=== PATIENT | male | born 1950 | race African-American/Black ===

== ENCOUNTER 2019-08-18 09:12 | Observation (INO) | payer OTHER ==
[2019-08-18] VITALS (13 sets, daily range): BP systolic 135–154; BP diastolic 73–92
[~2019-08-18] VITALS: Ht 170.2 cm; Wt 92.2 kg
[2019-08-18 10:03] LABS: HEMATOCRIT 38.1 % (42.0-52.0); HEMOGLOBIN 13.2 gm/dL (14.0-18.0); MCHC 34.5 g/dL (28.0-37.0); MCV 95.6 fL (80.0-100.0); MPV 6.5 fl. (7.2-11.1); RBC 3.98 mil/uL (4.50-6.00); RDW-CV 13.1 % (10.5-14.5); WBC 3.9 thou/uL (4.0-11.0)
[2019-08-18 10:13] LABS: APTT 27.8 Seconds (25.0-31.3); INR 1.1; PROTIME 11.4 Seconds (9.20-11.50)
[2019-08-18 10:15] LABS: CHOLESTEROL 247 mg/dL (<200); HDL CHOLESTEROL 52 mg/dL (>40); LDL CHOLESTEROL 176 mg/dL (<100); TC:HDL 4.8 Ratio (Not establshd); TRIGLYCERIDE 98 mg/dL (<150); VLDL 20 mg/dL (<40)
[2019-08-18 10:16] LABS: SERUM ASSESSMENT Clear
[2019-08-18] MEDS ORDERED: VITAMINC500 PO (10:28)
[2019-08-18] MEDS ORDERED: FLAX OIL1000 MG PO (10:29)
[2019-08-18] MEDS ORDERED: PRINIVIL20 MG PO (10:30)
[2019-08-18] MEDS ORDERED: FISH OIL 1,001000 M3 PO (10:30)
[2019-08-18] MEDS ORDERED: THERA-M TABLET1 EACH PO (10:31)
[2019-08-18 10:50] LABS: CALCIUM 8.5 mg/dL (8.5-10.1); CREATININE 1.1 mg/dL (0.6-1.3); POTASSIUM 3.6 mmol/L (3.5-5.1)
[2019-08-18 10:55] LABS: ALBUMIN 3.5 g/dL (3.4-5.0); TOTAL BILIRUBIN 0.4 mg/dL (<0.1-1.0); TOTAL PROTEIN 7.7 g/dL (6.4-8.2)
--- NOTE | 2019-08-18 15:58 | CARD ---
[address] [address] CARDIAC CATH REPORT Name: SHERRI HOLLOWAY Room: [address] MTheodore#: [id number] Admission: 08/18/19 Attend Phys: Travis Darby MD, Discharge: Date of : 52 Report #: [id number] THIS REPORT FOR: //name// cc: Franco Hinson MD, Austin T. 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, Supa Spears, Sybil Parks RTR Monitor, Stefanie Sellers RN RN, Rupal Mayo RTR Monitor Procedures Performed Art Access - R femoral artery, Left Heart Cath w/or w/o Coronaries LHC, JAVED Place w/wo Plasty Single LAD , Hemostasis w/ Angioseal Indication Positive stress test Risk Factors Hypercholesterolemia, Hypertension Admission/Lab Medications/Medications given during procedure Nitroglycerin IC 350 mcg, Angiomax IV bolus 12 ml, Angiomax Drip IV 28.61 ml per hr, Angiomax IV bolus 3 ml, Effient PO 60 mg, Aspirin PO 324 mg Procedure Narrative The patient was brought electively to the Cardiac Catheterization Laboratory and was prepped and draped in a sterile manner. The right femoral was infiltrated with 2% Lidocaine subcutaneous anesthesia. A 6F Montgomery sheath was inserted into the right femoral artery. Coronary angiography was performed using coronary diagnostic catheters. The right coronary system was accessed and visualized with a 6F JR4 catheter. The left coronary system was accessed and visualized with a 6F JL4 catheter. The left ventricle was accessed and visualized with a 6F Pigtail catheter. Left ventricular/[place] [address] CARDIAC CATH REPORT Name: SHERRI HOLLOWAY Room: [address] M.R.#: [id number] Admission: 08/18/19 Attend Phys: Travis Darby MD, Discharge: Date of : 52 Report #: [id number] Valve gradient assessed via catheter pullback. Left ventriculogram was performed in HENDERSON projection. Pre-demployment femoral angiogram was performed . Closure device was deployed with a 6 Fr Angioseal STS. The patient tolerated the procedure well and there were no complications associated with the procedure. There was no hematoma. Intraoperative Conscious Sedation Sedation start time: 12:39 Case end Time: 13:34 Fentanyl 50 mcg Versed 4 mg Fluoro Time: 12.5 minutes Dose: DAP 245362 cGycm2 1902 mGy Contrast Type and Amount: Visipaque 230 ml Coronary Angiography The patient's coronary anatomy is right dominant. Diagnostic Cath Left Main 0% narrowing LAD 75% proximal LAD narrowing with 80% tubular calcified mid LAD stenosis Circumflex 40% proximal and 60% tubular mid vessel narrowing Right Coronary Dominant vessel with 40% proximal narrowing Left Ventriculography The left ventricle is normal in size with normal contractility. The left ventricular ejection fraction is estimated to be 60%. Left ventricular wall motion abnormalities are present. There is no mitral insufficiency. There is mild anteroapical hypokinesis noted Hemodynamics The aortic pressure is 130/63 mmHg with a mean of 97 mmHg. The left ventricular pressure is 131/-6 mmHg with a mean of mmHg. The left ventricular end diastolic pressure is 7 mmHg. There was no gradient across the aortic valve upon pullback. PCI Technique Lesion Anticoagulation was achieved with Angiomax. Patient was preloaded with Angiomax IV bolus 12 ml. Percutaneous coronary intervention was performed on the mid left anterior descending artery segment. The lesion stenosis prior to intervention was 80% with YANET 3 flow. A 6F XB LAD 3.5 Guide Catheter was used to engage the left main ostium. A BMW 190cm Interventional Guidewire [place] [address] CARDIAC CATH REPORT Name: SHERRI HOLLOWAY Room: [address] M.R.#: [id number] Admission: 08/18/19 Attend Phys: Travis Darby MD, Discharge: Date of : 52 Report #: [id number] lesion. BALLOON DILATION A Balloon catheter Trek RX 2.25 X 15 was inserted and inflated up to 12.00atm for 11seconds. Additional Inflation: 14.00atm for 10seconds. Additional Inflation: 14.00atm for 8seconds. STENT DEPLOYMENT A drug-eluting stent [place] RX Stent 2.71O13fx was inserted and inflated up to 14.00atm for 11seconds. Additional Inflation: 16.00atm for 12seconds. POST STENT DEPLOYMENT BALLOON DILATION A Balloon catheter [place] Euphora 2.5x12 was inserted and inflated up to 12.00atm for 8seconds. Additional Inflation: 14.00atm for 8seconds. Final angiography reveals 0 % stenosis with YANET 3 flow. PCI Technique Lesion 2 Percutaneous Coronary Intervention was performed on the proximal left anterior descending artery segment. Patient was preloaded with Angiomax IV bolus 12 ml. The lesion stenosis prior to intervention was 75% with YANET 3 flow. A 6F XB LAD 3.5 Guide Catheter was used to engage the left main ostium. A BMW 190cm Interventional Guidewire was used to cross the lesion. Stent Deployment A drug-eluting stent [place] RX Stent 2.5X12mm was inserted and inflated up to 12.00atm for 13seconds. Additional Inflation: 15.00atm for 8seconds. Post Stent Deployment Balloon Dilation A Balloon catheter NC Euphora 2.5x12 was inserted and inflated up to 14.00atm for 5seconds. Additional Inflation: 15.00atm for 7seconds. Additional Inflation: 18.00atm for 11seconds. Final angiography reveals 0 % stenosis with YANET 3 flow. Conclusion 1. Significant coronary artery disease characterized by the following: A 75% proximal with 80% calcified tubular mid LAD stenosis [address] [address] CARDIAC CATH REPORT Name: SHERRI HOLLOWAY Room: 170-2 ADM Shahrzad Mercer#: [id number] Admission: 08/18/19 Attend Phys: Travis Darby MD, Discharge: Date of : 52 Report #: [id number] B 40% proximal and 60% tubular mid circumflex stenosis C dominant right coronary with 40% proximal narrowing 2. Normal global left ventricular systolic function, estimated ejection fraction being 60% with subtle anteroapical hypokinesis 3. Normal left-sided hemodynamic study 4. Successful PCI with deployment of sequential drug-eluting stents at the sites of 75% proximal and 80% tubular mid LAD stenosis with 0% residual narrowing at both sites and YANET-3 flow to the distal vessel Recommendations Cardiac Risk Reduction Program Aggressive Medical Therapy Medications Administered Aspirin (any) Prasugrel Diagnostic Cath Approved by: Travis Darby MD Date/Time: 08/18/2019 15:55:23 <ELECTRONICALLY SIGNED> By: Travis Darby MD, [facility] 08/18/19 1556 1556 1556Travis Darby MD, FACC /INF
--- NOTE | 2019-08-18 16:22 | EKG ---
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: : 1950 Requested By: Travis Darby Order Number: [id number] Niki MD: Travis Darby Measurements Intervals [place] Rate: 53 P: 18 FL: 174 QRS: 5 QRSD: 91 T: 3 QT: 433 QTc: 407 Interpretive Statements Sinus rhythm Abnormal R-wave progression, early transition Baseline wander in lead(s) V1,V2,V5,V6 No previous ECG available for comparison Electronically Signed On 08-18-2019 16:20:20 CDT by Travis Darby [email or web address] <ELECTRONICALLY SIGNED> By: Travis Darby MD, [facility] 08/18/19 1620 1037 1037 Travis Darby MD, [facility] /EPI
--- NOTE | 2019-08-18 16:30 | EKG ---
[place] [address] ELECTROCARDIOGRAM REPORT Name: SHERRI HOLLOWAY Room: [address]#: [id number] Admission: 08/18/19 Attend Phys: Hill Guzman Discharge: Date of : 52 Date of Service: 08/18/19 1425 Report #: [id number] THIS REPORT FOR: //name// 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1950 Requested By: Travis Darby Order Number: [id number] Niki MD: Travis Darby Measurements Intervals [place] Rate: 63 P: 35 [place]: 183 QRS: 6 QRSD: 87 T: 14 QT: 420 QTc: 430 Interpretive Statements Sinus rhythm Abnormal R-wave progression, early transition Minimal ST elevation, anterior leads No previous ECG available for comparison Electronically Signed On 08-18-2019 16:28:05 CDT by Travis Darby [email or web address] <ELECTRONICALLY SIGNED> By: Travis Darby MD, [facility] 08/18/19 1628 1425 1425 Travis Darby MD, [facility] /EPI
[2019-08-19 04:32] VITALS: BP 128/85
[2019-08-19 05:01] LABS: HEMATOCRIT 36.9 % (42.0-52.0); HEMOGLOBIN 13.2 gm/dL (14.0-18.0); MCH 33.9 pg (26.0-34.0); MCHC 35.7 g/dL (28.0-37.0); MPV 6.7 fl. (7.2-11.1); RBC 3.88 mil/uL (4.50-6.00); WBC 4.9 thou/uL (4.0-11.0)
[2019-08-19 05:23] LABS: CALCIUM 8.8 mg/dL (8.5-10.1); CREATININE 1.3 mg/dL (0.6-1.3); POTASSIUM 3.9 mmol/L (3.5-5.1); TOTAL BILIRUBIN 0.5 mg/dL (<0.1-1.0); TOTAL PROTEIN 6.8 g/dL (6.4-8.2)
[2019-08-19 05:51] LABS: TROPONIN-I LEVEL 1.34 ng/mL (<0.06)
[2019-08-19 08:00] VITALS: BP 125/84
[2019-08-19] MEDS ORDERED: EFFIENT10 MG PO (11:12)
[2019-08-19] MEDS ORDERED: NITROGLYCERIN0.4 MG SUBLING (11:13)
[2019-08-19] MEDS ORDERED: LIVALO4 MG PO (11:15)
[2019-08-19] MEDS ORDERED: ST. JOSEPH ASPI81 MG PO (11:20)
[2019-08-19 12:14] VITALS: BP 131/74
--- NOTE | 2019-08-20 11:02 | EKG ---
[place] [address] ELECTROCARDIOGRAM REPORT Name: SHERRI HOLLOWAY Room: [address] M..#: [id number] Admission: 08/18/19 Attend Phys: Hill Guzman Discharge: 08/19/19 Date of : 52 Date of Service: 08/19/19 0738 Report #: [id number] THIS REPORT FOR: //name// [facility] Test Date: 2019-08-19 Test Time: 07:38:36 Pat Name: SHERRI HOLLOWAY Department: Room: 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1950 Requested By: Travis Darby Order Number: [id number] Reading MD: Travis Darby Measurements Intervals [place] Rate: 54 P: 11 [place]: 174 QRS: 5 QRSD: 89 T: 2 QT: 435 QTc: 413 Interpretive Statements Sinus rhythm Abnormal R-wave progression, early transition Compared to ECG 08/18/2019 14:25:42 ST (T wave) deviation no longer present Electronically Signed On 08-20-2019 11:00:12 CDT by Travis Darby [email or web address] <ELECTRONICALLY SIGNED> By: Travis Darby MD, [facility] 08/20/19 1100 0738 0738 Travis Darby MD, [facility] /EPI
--- NOTE | 2019-08-20 11:11 | D ---
[address] [address] DISCHARGE SUMMARY Name: SHERRI HOLLOWAY Room: [address] Shahrzad Mercer#: [id number] Admission: 08/18/19 Attend Phys: Travis Darby MD, Discharge: 08/19/19 Date of : 52 Report #: [id number] THIS REPORT FOR: //name// cc: Franco Hinson MD, Austin T. MD ~ THIS REPORT FOR: //name// CC: Franco Darby DATE OF SERVICE: 08/19/2019 FINAL DISCHARGE DIAGNOSES: 1. Abnormal nuclear stress test. 2. Markedly increased coronary calcium score. 3. Hypertension. 4. Hyperlipidemia. PROCEDURES: 08/18/2019 -- left heart catheterization, left ventriculography, selective coronary arteriography and percutaneous coronary intervention with deployment of sequential drug-eluting stents at the site of 75% proximal and 80% tubular mid LAD stenosis. HOSPITAL COURSE: The patient is a very pleasant and active 68-year-old male with a markedly increased coronary calcium score and a recently abnormal nuclear stress test. He had risk factors of hypertension and hypercholesterolemia. Given this data, I performed cardiac catheterization on 08/18/2019, which revealed a 75% proximal tubular calcified mid LAD stenosis of 80% in magnitude. I placed two drug-eluting stents, one 2.5 x 12 [place] and one 2.25 x 34 Dmitry drug-eluting stents sequentially in the proximal and mid LAD with 0% residual narrowing after post dilatation to 2.5-2.7 mm. There was YANET 3 flow in the distal vessel. Troponin jose miguel minimally to 1.34. He had no chest pain post-procedurally and there was good hemostasis at the right femoral site of catheterization. Laboratory data on 08/18 revealed sodium of 141, potassium 3.9, BUN 10, creatinine 1.3, glucose 88. Hemoglobin 13.2, white blood cell count 4900, hematocrit 36.9, platelets 210,000. Lipids were markedly abnormal with the total cholesterol of 247, LDL of 176, HDL 52 and triglycerides of 98. He ambulated in [place] [address] DISCHARGE SUMMARY Name: SHERRI HOLLOWAY [address] [id number] Admission: 08/18/19 Attend Phys: Travis Darby MD, Discharge: 08/19/19 Date of : 52 Report #: [id number] The patient was discharged to home on the following medications: Ascorbic acid 500 mg daily, flaxseed oil 1000 mg daily, lisinopril 20 mg daily, multivitamin with mineral 1 tablet daily, omega-3 fatty acids or fish oil 1000 mg daily, prasugrel or Effient 10 mg daily with a 60 mg loading dose, p.r.n. sublingual nitroglycerin, and I instituted therapy with Livalo 4 mg daily. He did not tolerate Lescol and one additional statin in the past. ____ statin intolerant with this magnitude of LDL elevation and magnitude of coronary artery disease, PCSK9 inhibition would be indicated. This was discussed in detail with the patient. The patient is discharged to home in stable condition on the aforementioned medications with followup with myself on 09/18/2019 at 1300 hours. Follow up with Dr. Hinson. <ELECTRONICALLY SIGNED> By: Travis Darby MD, [facility] 08/20/19 1111 1032 1044Travis Darby MD, FACC /nt
== END 2019-08-19 13:00 | disposition home or self-care (01) ==
LOC: M.CL 09:12 → M.TBA-ER 13:56 → M.2W 16:46
PROVIDERS: ADMIT Internal Medicine
DX: I25.10 Atherosclerotic heart disease of native coronary artery without angina pectoris (principal); I10 Essential (primary) hypertension; E78.5 Hyperlipidemia, unspecified; R94.39 Abnormal result of other cardiovascular function study

== ENCOUNTER → 2020-08-09 | Outpatient (CLI) | payer OTHER ==
[~2020-08-09] MED LIST: EFFIENT10 MG PO; FISH OIL 1,001000 M3 PO; FLAX OIL1000 MG PO; LIVALO4 MG PO; NITROGLYCERIN0.4 MG SUBLING; PRINIVIL20 MG PO; ST. JOSEPH ASPI81 MG PO; THERA-M TABLET1 EACH PO; VITAMINC500 PO
--- NOTE | 2020-08-09 14:55 | CARDNUC ---
[place] [address] CARDIAC NUCLEAR IMAGING REPORT Name: SHERRI HOLLOWAY Room: [facility]#: [id number] Admission: 08/09/20 Attend Phys: Hill Guzman Discharge: Date of : 52 Date of Service: 08/09/20 1455 Report #: [id number] THIS REPORT FOR: cc: Franco Hinson MD, Austin T. MD Park, Jin S. MD ~ APPROVED REPORT Study performed: 08/09/2020 09:32:13 Indication: CAD , gloria calcium score Patient Location: Out-Patient Stress Tech: Corinne Bell Stress Nurse: Shae Rivera RN Ht: 5 ft 7 in Wt: 161 lbs BSA: 1.84 m2 BMI: 25.21 Medical History Medical History: CAD s/p stent, HTN, CKD Medications: asa-81, lisinopril, livalo, effient, omega 3 Allergies: No known drug allergies Cardiac Risk Factors: Age, HTN Previous Cardiac Procedures: PCI Exercise History: Physically active Resting Data Rest SPECT myocardial perfusion imaging was performed in supine position 30 minutes following the intravenous injection of 10.1 mCi of Tc-99m Sestamibi. Time of rest injection: 815 The images were gated to evaluate regional wall motion and calculate left ventricular ejection fraction. Administration Route: IV Administration Site: Right AC Exercise Stress At peak stress, the patient was injected intravenously with 30.0mCi of Tc-99m Sestamibi. Time of stress injection: 1000 Administration Route: IV Administration Site: Right AC Heart Rate at time of stress injection: 136 bpm. Patient continued to exercise for 1 minute(s). [place] [address] CARDIAC NUCLEAR IMAGING REPORT Name: SHERRI HOLLOWAY Room: [facility]#: [id number] Admission: 08/09/20 Attend Phys: Hill Guzman Discharge: Date of : 52 Date of Service: 08/09/20 1455 Report #: [id number] Gated Stress SPECT was performed 30 minutes after stress injection. The images were gated to evaluate regional wall motion and calculate left ventricular ejection fraction. Stress Test Details Stress Test: Exercise stress testing was performed using a Demond protocol. HR Max Heart Rate (APMHR): 152 bpm Resting HR: 49 bpm Target HR (85% APMHR): 129 bpm Max HR Achieved: 169 bpm % of APMHR: 111 Recovery HR: 93 bpm BP Resting BP: 120/75 mmHg Max BP: 194/86 mmHg Recovery BP: 144/81 mmHg ECG Resting ECG: Sinus Rhythm Stress ECG: Sinus Tachycardia ST Change: Ischemic Clinical Reason for Termination: Leg pain/Claudication Exercise duration: 12 min 39 sec Exercise capacity: 13.91 METs Overall Exercise Capacity for Age: Superior Functional Aerobic Impairment 111% Study Quality Study: Good Study Data Post stress, the left ventricular ejection was 57%.. Perfusion There is a medium area of moderately reduced uptake in the mid and apical segment of the inferior wall which is seen on the stress images and improves on the resting images. This area thickens and moves normally and is most consistent with ischemia. Wall Motion Normal left ventricular [place] [address] CARDIAC NUCLEAR IMAGING REPORT Name: SHERRI HOLLOWAY Room: [facility]#: [id number] Admission: 08/09/20 Attend Phys: Hill Guzman Discharge: Date of : 52 Date of Service: 08/09/20 1455 Report #: [id number] Nuclear Conclusion ECG Findings: positive for ischemia Clinical Findings: non-diagnostic Nuclear Findings: positive for ischemia Exercise Capacity: normal Left Ventricular Function: normal There is a partially reversible defect in the mid to apical inferior wall, suggestive for ischemia. There is normal global LV systolic function. <ELECTRONICALLY SIGNED> By: Dejuan Boone MD 08/09/20 1455 145 1455 Dejuan Boone MD /INF
== END ==
LOC: M.NUC 06-25 10:41
PROVIDERS: ATTEND Internal Medicine
DX: R00.0 Tachycardia, unspecified (principal); I25.10 Atherosclerotic heart disease of native coronary artery without angina pectoris; R93.1 Abnormal findings on diagnostic imaging of heart and coronary circulation; I12.9 Hypertensive chronic kidney disease with stage 1 through stage 4 chronic kidney disease, or unspecified chronic kidney disease; N18.9 Chronic kidney disease, unspecified; Z98.61 Coronary angioplasty status; Z79.82 Long term (current) use of aspirin; Z79.899 Other long term (current) drug therapy